=== PATIENT | male | born 2000 | race Caucasian/White ===

== ENCOUNTER 2021-02-26 00:54 | Emergency (ER) | payer OTHER | END 2021-02-26 02:38 | disposition home or self-care (01) | LOC: CSHERS 00:54 | DX: S01.01XA Laceration without foreign body of scalp, initial encounter (principal); F17.290 Nicotine dependence, other tobacco product, uncomplicated; W25.XXXA Contact with sharp glass, initial encounter | CPT/HCPCS: 12002; 70450 ==